=== PATIENT | female | born 1950 | race Caucasian/White ===

== ENCOUNTER 2017-02-09 10:46 | Day surgery (SDC) | payer OTHER ==
[~2017-02-09 10:46] MED LIST: MECLIZINE HCL25 M3 PO; NO HOME MEDICATION XX; VITAMIN D31000 UNI3 PO
== END 2017-02-10 09:05 ==
LOC: SHSC 10:46 → ORE 12:56 → PACU 14:18 → SHSC 15:30 → CAR1 19:40
PROC: 0GTG0ZZ Resection of Left Thyroid Gland Lobe, Open Approach (ICD-10-PCS; principal; 2017-02-10)
DX: C73 Malignant neoplasm of thyroid gland (principal); E55.9 Vitamin D deficiency, unspecified; E06.3 Autoimmune thyroiditis; E78.5 Hyperlipidemia, unspecified; F54 Psychological and behavioral factors associated with disorders or diseases classified elsewhere; F32.9 Major depressive disorder, single episode, unspecified; M85.80 Other specified disorders of bone density and structure, unspecified site; M19.90 Unspecified osteoarthritis, unspecified site; M26.609 Unspecified temporomandibular joint disorder, unspecified side; R82.79 Other abnormal findings on microbiological examination of urine; R93.8 Abnormal findings on diagnostic imaging of other specified body structures; R82.90 Unspecified abnormal findings in urine; R19.6 Halitosis; R55 Syncope and collapse; R31.9 Hematuria, unspecified; R35.0 Frequency of micturition; Z78.0 Asymptomatic menopausal state; Z79.899 Other long term (current) drug therapy; Z88.0 Allergy status to penicillin; Z88.2 Allergy status to sulfonamides; Z87.440 Personal history of urinary (tract) infections; Z90.49 Acquired absence of other specified parts of digestive tract; Z98.890 Other specified postprocedural states; Z82.0 Family history of epilepsy and other diseases of the nervous system
CPT/HCPCS: J0690; J1100; J1200; J2405; J3010